=== PATIENT | female | born 1985 | race Caucasian/White ===

== ENCOUNTER → 2020-09-08 | Outpatient (CLI) | payer OTHER, SELFPAY ==
[2017-04-14 18:45] VITALS: BMI 30.9
== END | disposition home or self-care (01) ==
PROVIDERS: Referring Provider Otolaryngology; Visit Provider Otolaryngology
DX: J02.9 Acute pharyngitis, unspecified (principal)
CPT/HCPCS: 87070

== ENCOUNTER 2020-11-03 16:06 | Emergency (ER) | payer OTHER, SELFPAY ==
[2020-11-03 16:08] VITALS: BP 153/95; PULSE 149; RESP 16; TEMP 36.9; O2SAT 96; BMI 34.4
--- NOTE | 2020-11-03 16:24 | ED.DCSUM_ITS ---
History of Present Illness Chief Complaint: Dental Narrative: 34-year-old female presenting with left-sided dental pain. She states she has had this for 3 days. She saw her dentist today who put her on Augmentin 500 mg / 125 mg 4 times a day. She is taken 1 dose of the antibiotic. She states she was having some pain and called the dentist office and they told her to come directly to the emergency room. Patient has not had any fever or difficulty swallowing or breathing. She states she feels like her left cheek feels a little swollen. Past Medical History - Allergies and Home Meds Allergies/Adverse Reactions: Allergies No Known Allergies Allergy (Verified 11/03/20 16:07) Primary Care Physician: Care Physician,No Primary [Primary Care Provider] - Prior records reviewed: Yes Past Medical History: - - Asthma Lives: Alone Smoking Status: Never smoker Alcohol: None Drugs: None Review of Systems General: Denies: Chills, Fever, Sweats Eyes: Denies: Visual changes - bilaterally, Diplopia ENT: Reports: - - Left maxillary dental pain. Denies: Rhinorrhea, Sore throat Respiratory: Denies: Dyspnea, Cough, Dyspnea on exertion Gastrointestinal: Denies: Abdominal pain, Nausea, Vomiting, Diarrhea, Melena, Hematochezia Genitourinary: Denies: Dysuria, Hematuria, Frequency Musculoskeletal: Denies: Back pain, Extremity Pain Skin: Denies: Rash, Wounds Neurological: Denies: Headache, Weakness, Numbness Psych: Denies: Depression, Anxiety Physical Exam Vital Signs/Narrative: Vital Signs Temp Pulse Resp BP Pulse Ox 11/03/20 16:08 98.4 F 149 H 16 153/95 H 96 General: Well nourished, No Acute Distress Head: Atraumatic, - - Tenderness to palpation over the left cheek along the m axillary jawline. There is no fluctuant mass.. Negative for: Trauma Eyes: Perrl, EOMI ENT: Moist mucous membranes, No rhinorrhea, - - Airway is patent without stridor. There is no sublingual edema. Buccal mucosa was normal. Percussion tenderness of tooth #15. No gingival swelling. No abscess. No sublingual edema. Tongue is not swollen. Back: Nontender, Normal Inspection Skin: Normal color, No rash Neurological: Alert, Oriented x3 Diagnostic/Tx/Re-eval - Medical Decision Making 4-year-old female presenting with dental pain. She states she saw her dentist this morning and continues to have pain. She is only taking 1 dose of antibiotics. She states she called her dental professional who told her to come directly to the emergency room. Dental professional did not provide any pain medication for the patient. On examination she has a little bit of swelling to the left cheek but I do not feel any abscess. Given that she is only taken 1 dose of antibiotics I do not believe she is failed outpatient antibiotics. Patient was provided pain medication as well as a [id number] prescription for clindamycin if she is not improving. Patient amenable to this plan. Patient stable discharge. Impression: 1. Dental abscess ED Disposition - Plan for ED Patient: Instructions: ED Dental Cavity Prescriptions: Clindamycin [Cleocin] 450 mg PO TID #90 cap Prescription Printed Hydrocodone Bitart/Apap 5-325 [[place] 5MG-325MG] 1 tab PO Q6H PRN PRN 3 Days #12 tab PRN Reason: Pain Prescription Printed Referrals: Care Physician,No Primary [Primary Care Provider] -
== END 2020-11-03 16:42 | disposition home or self-care (01) ==
LOC: ED 16:26
PROVIDERS: Emergency Provider Student in an Organized Health Care Education/Training Program
DX: K04.7 Periapical abscess without sinus (principal); J45.909 Unspecified asthma, uncomplicated
CPT/HCPCS: 99282